=== PATIENT | male | born 1965 ===

== ENCOUNTER 2023-05-31 09:51 | Emergency (ER) | payer OTHER ==
[~2023-05-31] VITALS: Ht 177.8 cm; Wt 80.0 kg
[2023-05-31 09:57] VITALS: BP 120/67; PULSE 68; RESP 18; TEMP 98
[2023-05-31] MEDS ORDERED: PERTUSS(ACELL),DIPH,TET VAC/PF 0.5 ML SYRINGE IM. ONE (14:45)
[2023-05-31] MEDS ORDERED: AMOX1TAB16 PO (14:48)
== END 2023-05-31 15:06 | disposition home or self-care (01) ==
LOC: EMS 09:55
DX: S81.851A Open bite, right lower leg, initial encounter (principal); W54.0XXA Bitten by dog, initial encounter; Y93.89 Activity, other specified; Y92.89 Other specified places as the place of occurrence of the external cause; Y99.8 Other external cause status
CPT/HCPCS: 90471; 90715; 99283